=== PATIENT | female | born 1965 | race Caucasian/White ===

== ENCOUNTER 2017-12-16 16:03 | Outpatient (CLI) | payer OTHER | END 2017-12-16 20:14 | disposition home or self-care (01) | LOC: SMA 16:03 | PROVIDERS: ATTEND Family Medicine | DX: Z12.31 Encounter for screening mammogram for malignant neoplasm of breast (principal) | CPT/HCPCS: 77067 ==

== ENCOUNTER 2018-03-23 13:48 | Outpatient (CLI) | payer OTHER | END 2018-03-23 20:37 | disposition home or self-care (01) | LOC: SMA 13:48 | PROVIDERS: ATTEND Physician Assistant Medical | DX: R92.1 Mammographic calcification found on diagnostic imaging of breast (principal) | CPT/HCPCS: 77066 ==